=== PATIENT | male | born 1990 | race Caucasian/White ===

== ENCOUNTER 2021-11-06 23:21 | Emergency (ER) | payer BC ==
[~2021-11-06] VITALS: Ht 188 cm; Wt 81.6 kg
[2021-11-06 23:37] VITALS: BP_SYST 138
--- NOTE | 2021-11-06 23:49 | NUR ---
PT HERE C/O DOG BITE TO RT HAND. PT STATED HE WAS BITEN BY THEIR DOG AROUND 2200 TONIGHT. BLEEDING CONTROLLED AT THIS TIME. PMH:DENIES PT AAOX4, NO SOB NOTED AND NAD. PENDING MD WATKINS
--- NOTE | 2021-11-07 01:37 | NUR ---
ER examining patient.
[2021-11-07] MEDS ORDERED: IBUPROFEN 600 MG TABLET PO ONE (01:45)
[2021-11-07] MEDS ORDERED: ACETAMINOPHEN 500 MG TABLET PO ONE (01:45)
[2021-11-07] MEDS ORDERED: IBUP-1969 PO (01:47)
[2021-11-07] MEDS ORDERED: AUG875 PO (01:47)
[2021-11-07] MEDS ORDERED: DIPHTH,PERTUSS(ACELL),TET VAC 0.5 ML VIAL (Tdap) I.M. ONE (02:00)
--- NOTE | 2021-11-07 02:08 | NUR ---
DC PT HOME AAOX4, NO SOB NOTED AND NAD. DC INSTRUCTION AND PRESCRIPTION WERE GIVEN TO PT. HEVERBALIZED UNDERSTANDING
== END 2021-11-07 02:07 | disposition home or self-care (01) ==
LOC: SED 23:21
DX: S61.431A Puncture wound without foreign body of right hand, initial encounter (principal); Z79.899 Other long term (current) drug therapy; W54.0XXA Bitten by dog, initial encounter; Y93.89 Activity, other specified; Y92.89 Other specified places as the place of occurrence of the external cause; Y99.8 Other external cause status
CPT/HCPCS: 90715; 99283